=== PATIENT | female | born 1995 | race Caucasian/White ===

== ENCOUNTER 2017-03-22 13:33 | Emergency (ER) | payer BC ==
[2017-03-22 14:13] VITALS: BP 133/77
--- NOTE | 2017-03-22 15:42 | RAD ---
INDICATION: Right ankle pain COMPARISON: None TECHNIQUE: AP, lateral, and oblique views were obtained. FINDINGS: The bony structures, joint spaces, and soft tissues are normal for age. IMPRESSION: NEGATIVE EXAMINATION
--- NOTE | 2017-03-22 17:42 | UC ---
Alok Davis Rebecca, scribed for Oleg Perez MD on 03/22/17 at 1510 . Lower Extremity/Ankle HPI - HPI Summary HPI Summary: Pt is a 22 y/o F who presents to [facility] c/o R ankle pain. Pt reports that 1 month ago she was walking off her front porch, stepped on the rock portion and her R ankle "gave out." Pt reports that she was initially in significant pain, which improved. Since the initial injury, her ankle has given out 3 times, with the most recent being yesterday. Associated pain is currently mild, ranked 3/10 and characterized as an ache on the lateral surface of the ankle. Sx aggravated by movement, alleviated by nothing and she has not used an DOMINGO wrap or RICE treatment. Denies swelling or knee pain. - History of Current Complaint Chief Complaint: UCLowerExtremity Stated Complaint: ANKLE INJURY Time Seen by Provider: 03/22/17 15:03 Hx Obtained From: Patient Hx Last Menstrual Period: 1 WEEK Onset/Duration: Lasting Weeks - 4 weeks, Still Present Severity Currently: Mild Pain Intensity: 3 Pain Scale Used: 0-10 Numeric Aggravating Factor(s): Other - Movement Alleviating Factor(s): Nothing Able to Bear Weight: Yes - Allergies/Home Medications Allergies/Adverse Reactions: Allergies Allergy/AdvReac Type Severity Reaction Status Date / Time Benzoyl Peroxide Allergy Hives Verified 03/22/17 14:14 Home Medications: Home Medications Control 1 tab PO DAILY 03/22/17 [History Confirmed 03/22/17] PMH/Surg Hx/FS Hx/Imm Hx - Additional Past Medical History Additional PMH: NEGATIVE PMHx: DM, HTN, CA - Surgical History Surgical History: None - Family History Known Family History: Positive: Cardiac Disease - Social History Alcohol Use: None Substance Use Type: None Smoking Status (MU): Never Smoked Tobacco Review of Systems Constitutional: Negative Skin: Negative Eyes: Negative ENT: Negative Respiratory: Negative Cardiovascular: Negative Gastrointestinal: Negative Genitourinary: Negative Motor: Negative Neurovascular: Negative Musculoskeletal: Arthralgia - R ankle pain, Other: - NEGATIVE: Swelling and knee pain Neurological: Negative Psychological: Negative All Other Systems Reviewed And Are Negative: Yes Physical Exam Triage Information Reviewed: Yes Vital Signs: Initial Vital Signs Temp 98.4 F 03/22/17 14:09 Pulse 94 03/22/17 14:09 Resp 15 03/22/17 14:09 BP 133/77 03/22/17 14:09 Pulse Ox 100 03/22/17 14:09 Vital Signs Reviewed: Yes - Additional Comments General: well-appearing, no pain distress, NAD Skin: warm, color reflects adequate perfusion, dry Head: normal Eyes: EOMI, YIMI ENT: normal Neck: supple, nontender Respiratory: CTA, breath sounds present Cardiovascular: RRR Abdomen: soft, nontender Bowel: present Musculoskeletal: strength/ROM intact, on the R ankle there is swelling distal to the lateral malleolus with tenderness on the swelling, there is no erythema and the rest of the foot is non-tender, FROM, good capillary refill, neurovascular is intact, pulses intact Neurological: normal, sensory/motor intact, A&O x3 Psychological: affect/mood appropriate Diagnostics - Radiology Ankle XR Xray Interpretation: No Acute Changes - NEGATIVE EXAMINATION. Physician reviewed radiology report and agrees. Radiology Interpretation Completed By: Radiologist Re-Evaluation - Re-Evaluation First Eval Re-Evaluation Time: 15:54 Comment: Discussed results with the pt. Lower Extremity Course/Dx - Course Course Of Treatment: Allergies noted. Medications reviewed. Elevated BP noted and advised to follow up with PCP. DISCUSSED X-RAY RESULTS WITH PATIENT. SHE WILL F/U WITH [facility]/PT. - Differential Dx/Diagnosis Provider Diagnoses: RIGHT ANKLE SPRAIN Discharge - Discharge Plan Condition: Stable Disposition: HOME Patient Education Materials: Ankle Sprain (ED) Referrals: [facility] [Provider Group] Additional Instructions: FOLLOW UP WITH YOUR DOCTOR. GET RECHECKED FOR ANY WORSENING OF YOUR CONDITION OR QUESTIONS OR CONCERNS. The documentation as recorded by the Alok pal Rebecca accurately reflects the service I personally performed and the decisions made by me, Oleg Perez MD.
== END 2017-03-22 16:15 | disposition home or self-care (01) ==
LOC: UCEAST 13:33
DX: S93.401A Sprain of unspecified ligament of right ankle, initial encounter (principal); X58.XXXA Exposure to other specified factors, initial encounter; Y92.9 Unspecified place or not applicable
CPT/HCPCS: 99213; G0463

== ENCOUNTER 2018-04-22 12:10 | Emergency (ER) | payer BC ==
[2018-04-22 12:23] VITALS: BP 137/70
--- NOTE | 2018-04-22 13:24 | UC ---
Skin Complaint HPI - HPI Summary HPI Summary: 23 y/o female presents to the urgent care c/o a small cyst in her left buttocks for the past 2 weeks. It started as a pimple, but it has increase in size. Pain is about 4/10 at touch. She has not taking any medication or applied warm compresses to alleviate symptoms. No discharge noted. No Hx of MRSA or previous abscess. Pt denies fever, SOB, chest pain, abdominal pain< N/V/D. Pt is UTD w/ all vaccines for her age. - History of Current Complaint Chief Complaint: UCGU Time Seen by Provider: 04/22/18 12:54 Stated Complaint: PERSONAL Hx Obtained From: Patient Hx Last Menstrual Period: 1 WEEK ?: No Onset/Duration: Gradual Onset, Lasting Weeks - 2 weeks on and off, Still Present , Worse Since - 2 days Skin Exposure Onset/Duration: Weeks Ago - 2 weeks Onset Severity: Mild Current Severity: Mild Pain Intensity: 4 - at touch Pain Scale Used: 0-10 Numeric Location: Discrete - left buttocks Character: Swelling, Redness, Painful Aggravating Factor(s): Touch Alleviating Factor(s): Nothing Associated Signs & Symptoms: Positive: Rash - cyst inb the left buttocks, Tenderness. Negative: Fever, Chills, Drainage Related History: Possible Reaction to: Environmental Exposure - Allergy/Home Medications Allergies/Adverse Reactions: Allergies Allergy/AdvReac Type Severity Reaction Status Date / Time benzoyl peroxide Allergy Hives Verified 04/22/18 12:23 Home Medications: Home Medications Norgestimate-Ethinyl Estradiol [Tri Femynor 28 Tablet] 1 tab PO 04/22/18 [ History] Review of Systems All Other Systems Reviewed And Are Negative: Yes Constitutional: Positive: Negative Skin: Positive: Rash - a painful cyst on her left buttocks Eyes: Positive: Negative ENT: Positive: Negative Respiratory: Positive: Negative Cardiovascular: Positive: Negative Gastrointestinal: Positive: Negative Genitourinary: Positive: Negative Motor: Positive: Negative Neurovascular: Positive: Negative Musculoskeletal: Positive: Negative Neurological: Positive: Negative Psychological: Positive: Negative Is Patient Immunocompromised?: No PMH/Surg Hx/FS Hx/Imm Hx Previously Healthy: Yes Other Endocrine History: Rocesea - Surgical History Surgical History: Yes Surgery Procedure, Year, and Place: knee - Family History Known Family History: Positive: Cardiac Disease - Social History Occupation: Student Lives: With Family Alcohol Use: Occasionally Substance Use Type: None Smoking Status (MU): Never Smoked Tobacco - Immunization History Vaccination Up to Date: Yes Physical Exam - Summary Physical Exam Summary: Vital Signs Reviewed: Yes General: well developed, well nourished obese female sitting in the examining table w/o any apparent distress Eye Exam: Normal Eyes: Positive: Conjunctiva Clear - PERRLA, EOMI, fundi grossly normal ENT: Positive: Normal ENT inspection, Hearing grossly normal, Pharynx normal, TMs normal Neck: Positive: Supple, Nontender, No Lymphadenopathy Respiratory: Positive: Chest non-tender, Lungs clear, Normal breath sounds, No respiratory distress Cardiovascular: Positive: RRR, No Murmur, Pulses Normal, Brisk Capillary Refill Abdomen Description: Positive: Nontender, No Organomegaly, Soft. Negative: CVA Tenderness (R), CVA Tenderness (L) Bowel Sounds: Positive: Present Musculoskeletal: Positive: Strength Intact, ROM Intact, No Edema Neurological: Positive: Alert, Muscle Tone Normal Psychological Exam: Normal Skin: Positive: LF mid gluteus w/ a discrete erythematous pustule that is mildly indurated and tender to palpation, mild swollen, and warm to touch about .4cm in size. Triage Information Reviewed: Yes Vital Signs: Initial Vital Signs Temp 98.5 F 04/22/18 12:19 Pulse 100 04/22/18 12:19 Resp 18 04/22/18 12:19 BP 137/70 04/22/18 12:19 Pulse Ox 99 04/22/18 12:19 Course/Dx - Course Course Of Treatment: 23 y/o female presents to the urgent care c/o a small cyst in her left buttocks for the past 2 weeks. It started as a pimple, but it has increase in size. Pain is about 4/10 at touch. She has not taking any medication or applied warm compresses to alleviate symptoms. No discharge noted. No Hx of MRSA or previous abscess. Pt denies fever, SOB, chest pain, abdominal pain, N/V/D. Pt is UTD w/ all vaccines for her age. Hx obtained. Pt w / a small pustule in the mid left gluteus that is not ready for I&D today. Pt Rx Keflex PO and Bactroban topical cream and advised to apply warm compresses throughout the day. Pt advised if not improvment of symptoms in 2 days to return to the urgent care or her PCP for further management. D/C instructions explained. Pt understood and agreed w/ plan of care. - Differential Diagnoses - Skin Complaint Differential Diagnoses: Abscess, Cellulitis, Contact Dermatitis, Impetigo, Local Allergic Reaction, MRSA - Diagnoses Provider Diagnosis: Skin pustule Discharge - Sign-Out/Discharge Documenting (check all that apply): Patient Departure - D/c home All imaging exams completed and their final reports reviewed: No Studies - Discharge Plan Condition: Stable Disposition: HOME Prescriptions: Cephalexin CAP* [Keflex CAP*] 500 mg PO TID #21 cap Mupirocin 2% OINT* [Bactroban 2 % Oint*] 1 applic TOPICAL BID #1 tube Patient Education Materials: Abscess (ED) Referrals: [facility] [[facility]] - 3 Days Additional Instructions: 1-Please take full course of antibiotic to avoid resistance. Keep wound clean and dry with a sterile dressing. Apply bactroban topical cream as directed 2-. Take Ibuprofen PO q6-8hrs prn for pain or swelling. Apply warm compresses throughout the day since pustule in not ready for Incision and drainage 3-If not improvement of symptoms and pustule increases in size please return to the Urgent care or f/u w/ your PCP for further management. - Billing Disposition and Condition Condition: STABLE Disposition: Home
== END 2018-04-22 13:32 | disposition home or self-care (01) ==
LOC: UCEAST 12:10
DX: L08.9 Local infection of the skin and subcutaneous tissue, unspecified (principal)
CPT/HCPCS: 99212; G0463

== ENCOUNTER 2018-04-26 10:14 | Emergency (ER) | payer BC ==
[2018-04-26 10:24] VITALS: BP 122/71
--- NOTE | 2018-04-26 10:34 | UC ---
Skin Complaint HPI - HPI Summary HPI Summary: 23 yo female presents with sore on left buttocks. She tells me that she was seen here a few days ago and placed on antibiotics for a suspect abscess. She says that it has been improving well and pain is much improved. She is going back home next week and wanted to make sure that it is healing well and doesn't need to be lanced. She still has 3-4 days left of her antibiotic. Denies fever or chills. - History of Current Complaint Chief Complaint: UCWounds Time Seen by Provider: 04/26/18 10:34 Stated Complaint: FOLLOW UP Hx Obtained From: Patient Hx Last Menstrual Period: 04/13/18 Onset/Duration: Gradual Onset Onset Severity: Moderate Current Severity: Mild Pain Intensity: 1 Pain Scale Used: 0-10 Numeric - Allergy/Home Medications Allergies/Adverse Reactions: Allergies Allergy/AdvReac Type Severity Reaction Status Date / Time benzoyl peroxide Allergy Hives Verified 04/26/18 10:18 PMH/Surg Hx/FS Hx/Imm Hx - Additional Past Medical History Additional PMH: None - Surgical History Surgical History: Yes Surgery Procedure, Year, and Place: L knee 2012 - Family History Known Family History: Positive: Cardiac Disease - Social History Occupation: Student Lives: Dormitory/Roommates Alcohol Use: Occasionally Substance Use Type: None Smoking Status (MU): Never Smoked Tobacco - Immunization History Vaccination Up to Date: Yes Review of Systems All Other Systems Reviewed And Are Negative: Yes Constitutional: Positive: Negative Skin: Positive: Other - Sore on left buttocks Respiratory: Positive: Negative Cardiovascular: Positive: Negative Neurovascular: Positive: Negative Neurological: Positive: Negative Psychological: Positive: Negative Physical Exam - Summary Physical Exam Summary: GENERAL: NAD. WDWN. No pain distress. SKIN: LEFT buttocks with 5mm area of mild erythema and healing abscess vs sore. No induration, streaking, or open wound. Very mild TTP. No drainage. NECK: Supple. Nontender. No lymphadenopathy. CHEST: No accessory muscle use. Breathing comfortably and in no distress. CV: Pulses intact. Cap refill <2seconds NEURO: Alert. PSYCH: Age appropriate behavior. Triage Information Reviewed: Yes Vital Signs: Initial Vital Signs Temp 97.8 F 04/26/18 10:19 Pulse 92 04/26/18 10:19 Resp 16 04/26/18 10:19 BP 122/71 04/26/18 10:19 Pulse Ox 99 04/26/18 10:19 Vital Signs Reviewed: Yes Course/Dx - Course Course Of Treatment: Wound appears to be healing well. Continue antibiotics and keep wound covered until well healed. - Diagnoses Provider Diagnosis: Wound of left buttock Discharge - Sign-Out/Discharge Documenting (check all that apply): Patient Departure All imaging exams completed and their final reports reviewed: No Studies - Discharge Plan Condition: Stable Disposition: HOME Patient Education Materials: Abscess (ED) Referrals: No Primary Care Phys,NOPCP [Primary Care Provider] - Additional Instructions: If you develop a fever, shortness of breath, chest pain, new or worsening symptoms - please call your PCP or go to the ED. 1) Your wound appears to be healing well. Continue keeping it covered until gone and finish you antibiotic - Billing Disposition and Condition Condition: STABLE Disposition: Home
== END 2018-04-26 11:06 | disposition home or self-care (01) ==
LOC: UCEAST 10:14
DX: Z51.89 Encounter for other specified aftercare (principal); L98.9 Disorder of the skin and subcutaneous tissue, unspecified; Z88.8 Allergy status to other drugs, medicaments and biological substances
CPT/HCPCS: 99211; G0463